=== PATIENT | male | born 1985 | race Caucasian/White ===

== ENCOUNTER 2018-04-23 11:15 | Outpatient (RCR) | payer MEDICARE, MEDICAID, SELFPAY ==
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
--- NOTE | 2018-04-16 16:27 | PT.OPPOC ---
Current Diagnoses Pain in right shoulder (04/15/18) Provider Visit Care Team Role Provider Type Rafael Villarreal MD Attending Provider Physician Family Provider Primary Care Provider Specialty: Internal Medicine Address: [address] [place] [address], [id number] Email: [email or web address] Plan Of Care PT-OP-T Assessment and Plan Start: 04/15/18 14:29 Freq: Status: Active Protocol: Document 04/15/18 13:00 AMB (Rec: 04/16/18 16:26 AMB [email or web address]) Physical Therapy Assessment Rehab Potential Rehabilitation Potential Good Evaluation Complexity Number of Personal Factors/Comorbidities 1-2 Number of Body Systems Impaired 4 or More Clinical Presentation at Evaluation Evolving Impairments Impairments Activity Tolerance Functional Activities Pain Posture ROM Strength Goals Three Impairment Activity tolerance Short Term Goal (STG) The patient will sleep on his right shoulder for 2 hours without waking due to pain. STG Duration 5 weeks Correction Goal (LTG) The patient will perform all upper body dressing without increasing his baseline pain. LTG Duration 10 weeks Two Impairment Strength Short Term Goal (STG) The patient will be independent with a ROM and strengthening HEP. STG Duration 5 weeks Truck Body Builder Goal (LTG) The patient will improve his strength so that he can lift a 10# bag of groceries from the floor to waist height without an increase in pain. One Impairment ROM Short Term Goal (STG) The patient will increase his pain free active ROM to flexion of 90 degrees. STG Duration 5 weeks Truck Body Builder Goal (LTG) The patient will increase his pain free active ROM to wash his hair with is right hand. LTG Duration 10 weeks Assessment Summary Assessment The patient presents with insidious onset posterior right shoulder pain. His pain is high so that it is difficult for him to move the arm, and therefore specific testing to rule in/out specific pathology was inconclusive (everything increased his pain). He will benefit from PT, but progression may be slow due to his fear of movement. Physical Therapy Plan Frequency and Duration Frequency of Treatment 2x/Week Duration of Treatment 10 weeks Plan of Care Start Date 04/15/18 Plan of Care End Date 06/24/18 Therapeutic Interventions Therapeutic Interventions Home Exercise Program Manual Therapy Neuromuscular Re-education Self-Care/Home Management Soft Tissue Mobilization Taping Therapeutic Activities Therapeutic Exercises Modalities Cold Pack/Ice Massage Electric Stimulation Hot Packs Next Visit Focus/Plan Next Note Type Treatment Note Next Visit Plan Begin with nani DIOP Plan of Care Dates Plan of Care Start Date 04/15/18 Plan of Care End Date 06/24/18 Please Sign and Return: I have reviewed this Plan of Care and certify that the skilled therapy services above are required to meet the patient?s needs. Physician Signature Date Printed Name and Credentials Clinical Instructor Signature Printed Name and Credentials
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
== END 2018-07-23 10:41 ==
LOC: PHYS 11:15
PROVIDERS: Family Provider Internal Medicine; PCP Internal Medicine; Visit Provider Internal Medicine
DX: M25.511 Pain in right shoulder (principal)
CPT/HCPCS: 97010; 97110; 97140; 97162

== ENCOUNTER 2018-07-15 12:02 | Emergency (ER) | payer MEDICARE, MEDICAID, SELFPAY ==
[2018-07-15 12:09] VITALS: BP 115/68; PULSE 74; RESP 18; TEMP 36.1; O2SAT 100
--- NOTE | 2018-07-15 13:32 | DI.RAD.S_ITS ---
PROCEDURE: XR CHEST 2V INDICATIONS: productive cough, fever TECHNIQUE: 2 views of the chest were acquired. COMPARISON: [facility], , CHEST 1 VIEW, 09/30/2016, 2:10. FINDINGS: Surgical changes and devices: None. Lungs and pleura: Increased density at the right lung base is identified, which may be slightly more prominent on the current study. No lobar consolidation, effusion, or pneumothorax is evident. Mild pulmonary hyperexpansion of the lungs is present versus pectus excavatum. Mediastinum: Mediastinal contours are normal. Heart size is normal. Bones and chest wall: No suspicious bony abnormalities. Soft tissues appear unremarkable. IMPRESSION: Increased density within the right infrahilar region may be exaggerated by pectus excavatum. Subtle pneumonia cannot be completely excluded. Please correlate clinically. Dictated by: Harman Hull M.D. on 07/15/2018 at 13:07 Approved by: Harman Hull M.D. on 07/15/2018 at 13:08
--- NOTE | 2018-07-15 14:03 | ED_ITS ---
HPI - URI/Sore Throat <ANDRZEJ Alfred - Last Filed: 07/15/18 15:08> General Chief Complaint: Upper Respiratory Symptoms Stated Complaint: Posibility of Pneumonia Time Seen by Provider: 07/15/18 13:28 Source: patient Mode of arrival: ambulatory Limitations: no limitations History of Present Illness HPI Narrative: Patient presents with chief complaint of productive cough for the past week and half. He states his cough is worsening. He complains of low- grade subjective fevers, chills. He denies any vomiting or diarrhea. He is concerned he has pneumonia, as he states he has pneumonia easily. 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 He states that he will possibly also get an AICD at this point time. He states that his lungs hurt to breathe. He did have any chest pain. He has taken Tylenol to feel better. Patient presents stating that he is having lung pain and denies any need for lab work, EKG. He states he would just like an x- ray done. Related Data Home Medications Medication Instructions Recorded Confirmed divalproex 500 mg tablet,delayed 1,000 mg PO BID 06/22/18 06/22/18 release Previous Rx's Medication Instructions Recorded prednisone 20 mg tablet See Label Instructions PO .COMPLEX 04/27/18 #8 tab albuterol sulfate 2 puff INHALATION Q4-6H PRN #18 07/15/18 gram azithromycin See Label Instructions .ROUTE 07/15/18 .COMPLEX #6 tab Allergies Allergy/AdvReac Type Severity Reaction Status Date / Time amoxicillin [AMOXICILLIN] Allergy Mild hives Verified 06/22/18 11:34 venom-honey bee Allergy Unknown Verified 06/22/18 11:34 [BEE VENOM (HONEY BEE)] fluoxetine [FLUOXETINE] AdvReac Severe homicidal Verified 06/22/18 11:34 venlafaxine [VENLAFAXINE] AdvReac Severe vomiting Verified 06/22/18 11:34 Review of Systems <ANDRZEJ Alfred - Last Filed: 07/15/18 15:08> Review of Systems GENERAL: See HPI HEENT: Denies sinus pain, ear pain, sore throat, difficulty swallowing, dizziness. RESPIRATORY: HPI CARDIOVASCULAR: Denies chest pain, palpitations, orthopnea, edema, GASTROINTESTINAL: Denies nausea, vomiting, abdominal pain, diarrhea, constipation, melena. : Denies dysuria, frequency, incontinence, hematuria, urinary retention. MUSCULOSKELETAL: denies weakness, joint pain, or bony pain SKIN: Denies rash, skin lesions, or other NEUROLOGIC: Denies weakness, headache, numbness, change in speech, confusion, seizures, incoordination. PSYCHIATRIC: No concerning psychosocial issues. 12 point review of systems is negative except for those stated above Exam <ALEXANDRIA Alfred-BC - Last Filed: 07/15/18 15:08> Narrative Exam Narrative: GENERAL: Since patient in no acute distress HEAD: Atraumatic. Normocephalic. No temporal or scalp tenderness. EYES: Pupils equal round and reactive. Extraocular motions intact. No scleral icterus. No injection or drainage. ENT: Nose without bleeding, purulent drainage or septal hematoma. Throat without erythema, tonsillar hypertrophy or exudate. Uvula midline. Airway patent. NECK: Trachea midline. No JVD or lymphadenopathy. Supple, nontender, no meningeal signs. CARDIOVASCULAR: Regular rate and rhythm without murmurs, gallops, or rubs. RESPIRATORY: Clear to auscultation. Breath sounds equal bilaterally. No wheezes , rales, or rhonchi. No increased respiratory effort. No retractions. No accessory muscle use. No cough on exam. GASTROINTESTINAL: Abdomen soft, non-tender, nondistended. No hepato-splenomegaly , or palpable masses. No guarding. EXTREMITIES: No clubbing, cyanosis, or edema. No joint tenderness, effusion, or edema noted. BACK: Nontender without deformity or crepitance. No flank tenderness. NEURO: AOx3. SKIN: No rash or erythema. Initial Vital Signs Initial Vital Signs: Vital Signs Temperature 97.0 F L 07/15/18 12:09 Pulse Rate 74 07/15/18 12:09 Respiratory Rate 18 07/15/18 12:09 Blood Pressure 115/68 07/15/18 12:09 Pulse Oximetry 100 07/15/18 12:09 <Luis Eduardo Hooker DO - Last Filed: 07/15/18 21:01> Initial Vital Signs Initial Vital Signs: Vital Signs Temperature 97.0 F L 10/04/18 12:09 Pulse Rate 74 07/15/18 12:09 Respiratory Rate 18 07/15/18 12:09 Blood Pressure 115/68 07/15/18 12:09 Pulse Oximetry 100 07/15/18 12:09 Course <ANDRZEJ Alfred - Last Filed: 07/15/18 15:08> Orders Ordered: ED Orders 07/15/18 13:32 XR chest 2V Stat Vital Signs - 8 hr 07/15/18 14:55 Pulse Rate 76 Respiratory Rate 18 Blood Pressure 121/63 Pulse Oximetry 100 <Luis Eduardo Hooker DO - Last Filed: 07/15/18 21:01> Orders Ordered: ED Orders 07/15/18 13:32 XR chest 2V Stat Vital Signs - 8 hr 07/15/18 14:55 Pulse Rate 76 Respiratory Rate 18 Blood Pressure 121/63 Pulse Oximetry 100 MDM - URI/Sore Throat <ANDRZEJ Alfred - Last Filed: 07/15/18 15:08> Differential Diagnosis Differential diagnosis: Likely upper respiratory infection, viral infection, bronchitis and influenza Imaging Data Chest x-ray: Radiologist's impression: [address] [address] XRay Report Signed Patient: Roque Dasilva EMR#: [id number] : 1985Acct:[id number] Age/Sex: 32 / MDate of Service: 07/15/18 Loc: ED Accession Number: [id number] Procedure: XR chest 2V Ordering Provider: Mireya Goodwin PROCEDURE: XR CHEST 2V INDICATIONS: productive cough, fever TECHNIQUE: 2 views of the chest were acquired. COMPARISON: Located [facility], , CHEST 1 VIEW, 09/30/2016, 2:10. FINDINGS: Surgical changes and devices: None. Lungs and pleura: Increased density at the right lung base is identified, which may be slightly more prominent on the current study. No lobar consolidation, effusion , or pneumothorax is evident. Mild pulmonary hyperexpansion of the lungs is present versus pectus excavatum. Mediastinum: Mediastinal contours are normal. Heart size is normal. Bones and chest wall: No suspicious bony abnormalities. Soft tissues appear unremarkable. IMPRESSION: Increased density within the right infrahilar region may be exaggerated by pectus excavatum. Subtle pneumonia cannot be completely excluded. Please correlate clinically. Dictated by: Harman Hull M.D. on 07/15/2018 at 13:07 Approved by: Harman Hull M.D. on 07/15/2018 at 13:08 [facility] Narrative Medical decision making narrative: Patient presents with chief complaint of possible pneumonia. He has been having a productive cough and fevers. 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 X-ray illustrated increased density within the right infrahilar region. Given his fever, productive cough, duration of illness combined with the x-ray results, I will treat him with azithromycin. He states his has worked well for him in the past. He states he has used an inhaler in the past and would like 1 at this time for wheezing if he needs it. I am okay with this. Patient already has follow-up scheduled for tomorrow with primary care. I encouraged him to keep his follow-up and come back to the emergency department if needed. He had no questions upon discharge. Discharge Plan Departure Patient Disposition: Home Clinical Impression: Pneumonia Discharge Date/Time: 07/15/18 14:55 Interventions: ED Discharge Assessment Last Done: 07/15/18 14:55 Instructions: DI for Pneumonia -- Adult Activity Restrictions/Additional Instructions: Please follow-up with primary care as discussed. Your starting on antibiotics and I gave you a prescription for an albuterol inhaler to use if you need it. Please monitor for worsening of symptoms, fever, shortness of breath. Come back to the emergency department if needed. Prescriptions: New albuterol sulfate 90 mcg/actuation HFA aerosol inhaler 2 puff INHALATION Q4-6H PRN (Reason: shortness of breath or wheezing) Qty: 18 RF: 0 azithromycin 250 mg tablet See Label Instructions .ROUTE .COMPLEX Qty: 6 RF: 0 No Action prednisone 20 mg tablet See Label Instructions PO .COMPLEX Qty: 8 RF: 0 divalproex [Depakote] 500 mg tablet,delayed release (DR/EC) 1,000 mg PO BID RF: 0 Referrals: Rafael Villarreal MD [Primary Care Provider] - <Luis Eduardo Hooker DO - Last Filed: 07/15/18 21:01> Cosign ED Attending Cosignature Attestation: I was immediately available in the department for consultation. Documentation has been reviewed. I agree with assessment and plan.
[2018-07-15 14:55] VITALS: BP 121/63; PULSE 76; RESP 18; O2SAT 100
== END 2018-07-15 14:55 | disposition home or self-care (01) ==
PROVIDERS: Emergency Provider Nurse Practitioner Family; Family Provider Internal Medicine; PCP Internal Medicine
DX: J18.9 Pneumonia, unspecified organism (principal)
CPT/HCPCS: 71046; 99282; 99283

== ENCOUNTER 2019-04-09 20:36 | Emergency (ER) | payer MEDICARE, MEDICAID, SELFPAY ==
[2019-04-09 20:37] VITALS: BP 133/80; PULSE 96; RESP 20; TEMP 37; O2SAT 100; BMI 18.4
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
[2019-04-09] MEDS: IBUPROFEN 400 MG TABLET 800 MG PO (21:09)
--- NOTE | 2019-04-09 21:23 | PC.NURSE ---
No open skin noted on L FA. Pt reports pain in L FA and down to thumb area with movements and touch
== END 2019-04-09 21:15 | disposition home or self-care (01) ==
PROVIDERS: Emergency Provider Emergency Medicine; PCP Internal Medicine
DX: S50.12XA Contusion of left forearm, initial encounter (principal); W50.3XXA Accidental bite by another person, initial encounter
CPT/HCPCS: 29125; 99282

== ENCOUNTER → 2019-11-18 15:54 | Outpatient (CLI) | payer MEDICARE, MEDICAID, SELFPAY ==
[2019-11-18 18:25] LABS: Alanine Aminotransferase 16 IU/L (<50); Albumin 4.4 g/dL (3.5-5.0); Albumin Globulin Ratio 1.5 (1.0-2.8); Alkaline Phosphatase 55 U/L (38-126); Aspartate Aminotransferase 24 IU/L (17-59); Bilirubin Total 0.4 mg/dL (0.2-1.3); Bilirubin Unconjugated 0.4 mg/dL (0.0-1.1); Globulin 2.9 g/dL (1.7-4.1); HEMOLYSIS < 15 (0-50); Total Protein 7.3 g/dL (6.3-8.2)
[2019-11-18 20:57] LABS: Hep C Virus Ab w/Reflex Quant NEGATIVE s/c (NEGATIVE)
== END ==
PROVIDERS: PCP Internal Medicine; Referring Provider Internal Medicine; Visit Provider Internal Medicine
DX: K75.9 Inflammatory liver disease, unspecified (principal)
CPT/HCPCS: 36415; 80076; 86803

== ENCOUNTER → 2020-05-30 08:54 | Outpatient (CLI) | payer MEDICARE, MEDICAID, SELFPAY ==
[2020-06-01 09:08] LABS: COVID19 Sendout Not Detected (Not Detected)
== END ==
PROVIDERS: PCP Internal Medicine; Visit Provider Physician Assistant
DX: Z11.59 Encounter for screening for other viral diseases (principal)
CPT/HCPCS: 87635

== ENCOUNTER 2021-03-08 03:24 | Emergency (ER) | payer MEDICARE, MEDICAID, SELFPAY ==
[2021-03-08] VITALS (26 sets, daily range): BP systolic 100–125; BP diastolic 57–82; PULSE 67–104; RESP 11–25; TEMP 36.6; O2SAT 96–100; BMI 19.2
--- NOTE | 2021-03-08 03:28 | ED.OVERDOSE ---
HPI - Overdose <Luis Eduardo Hooker DO - Last Filed: 03/09/21 18:31> General Chief Complaint: Toxicology Problem Stated Complaint: Overdose Time Seen by Provider: 03/08/21 03:25 Source: patient and police Mode of arrival: Ambulatory Limitations: no limitations History of Present Illness HPI Narrative: 35-year-old male smoker with history of intermittent explosive disorder, anxiety, substance abuse, bipolar presents with police in the chief complaint of suicidal ideation and attempt just prior to arrival. His significant other apparently just left him and he felt overwhelmingly depressed and suicidal and in an effort to take his own life he consumed upwards of 40 hydroxyzine 25 mg tablets that had been prescribed 2013. He did this all at once and just 30 minutes prior to his arrival. He denies much in the way of other symptoms. He is not dizzy, weak or lightheaded. He denies any nausea or vomiting. He denies any chest pain or shortness of breath. He denies any other substances. Patient was escorted by [facility], but walked himself here and is voluntary. MD complaint: intentional overdose Onset (ago): minute(s) Timing confirmed by: family member Intent: suicide attempt Context: Intentional Overdose: relationship problems Associated symptoms: depression Treatments Prior to Arrival: none Related Data Previous Rx's Medication Instructions Recorded divalproex 500 mg tablet,delayed 500 mg PO BID #60 tab 03/01/19 release olanzapine 2.5 mg tablet 2.5 mg PO BEDTIME #30 tab 08/23/20 Allergies Allergy/AdvReac Type Severity Reaction Status Date / Time amoxicillin [AMOXICILLIN] Allergy Mild hives Verified 08/23/20 10:47 venom-honey bee Allergy Unknown Verified 08/23/20 10:47 [BEE VENOM (HONEY BEE)] fluoxetine [FLUOXETINE] AdvReac Severe homicidal Verified 08/23/20 10:47 venlafaxine [VENLAFAXINE] AdvReac Severe vomiting Verified 08/23/20 10:47 Review of Systems <Luis Eduardo Hooker DO - Last Filed: 03/09/21 18:31> Constitutional Constitutional: Denies chills, Denies fatigue, Denies fever(s), Denies frequent falls, Denies lethargy and Denies weakness Eyes Eyes: Denies change in vision, Denies eye discharge, Denies irritation and Denies loss of vision ENT Ears, Nose, Mouth, and Throat: Denies change in voice, Denies dizziness, Denies neck pain, Denies sore throat and Denies throat swelling Cardiovascular Cardiovascular: Denies chest pain, Denies irregular heart rhythm, Denies lightheadedness, Denies palpitations, Denies dyspnea, Denies dyspnea on exertion and Denies orthopnea Respiratory Respiratory: Denies cough, Denies dyspnea, Denies dyspnea on exertion and Denies wheezing Gastrointestinal Gastrointestinal: Denies abdominal pain, Denies change in bowel habits, Denies diarrhea, Denies nausea and Denies vomiting Musculoskeletal Musculoskeletal: Denies neck pain and Denies numbness Integumentary/Breasts Skin/Breast: Denies pruritus, Denies erythema, Denies rash and Denies wounds Neurologic Neurologic: Denies behavioral changes, Denies confusion, Denies dizziness, Denies frequent falls, Denies loss of vision, Denies numbness and Denies weakness Psychiatric Psychiatric: Denies anxiety, Denies behavioral changes, Denies confusion, Reports depression, Denies homicidal ideation and Reports suicidal ideation Endocrine Endocrine: Denies fatigue, Denies flushing and Denies palpitations Hematologic/Lymphatic Hematologic/Lymphatic: Denies easy bruising Allergic/Immunologic Allergic/Immunologic: Denies urticaria, Denies throat swelling and Denies wheezing Patient History <Luis Eduardo Hooker DO - Last Filed: 03/09/21 18:31> Medical History (Updated 03/08/21 @ 13:32 by Mireya Kimble DO) Anger reaction (03/01/15) Anxiety Bipolar I disorder (03/01/15) Cardiac arrhythmia Hemorrhoids History of substance abuse Intermittent explosive disorder PTSD (post-traumatic stress disorder) Supraventricular tachycardia (06/26/14) Entrw-Qclpregde-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 Well-nourished, well-developed patient, in mild distress. Tearful, visibly upset HEAD: Atraumatic. Normocephalic. EYES: Pupils equal round and reactive. Extraocular motions intact. No scleral icterus. No injection or drainage. ENT: Nose without bleeding, purulent drainage. Throat without erythema, tonsillar hypertrophy or exudate. Airway patent. NECK: Trachea midline. Non tender CARDIOVASCULAR: Regular rate and rhythm without murmurs, gallops, or rubs. RESPIRATORY: Clear to auscultation. Breath sounds equal bilaterally. No wheezes, rales, or rhonchi. GASTROINTESTINAL: Abdomen soft, non-tender, nondistended. EXTREMITIES: No edema or joint tenderness. BACK: Nontender without deformity or crepitance. No flank tenderness. NEURO: AOx3. SKIN: No rash or erythema of visible areas Initial Vital Signs Initial Vital Signs: Vital Signs Pulse Rate 104 H 03/08/21 03:27 Respiratory Rate 16 03/08/21 03:27 Pulse Oximetry 100 03/08/21 03:27 <Mireya Kimble DO - Last Filed: 03/08/21 18:46> Initial Vital Signs Initial Vital Signs: Vital Signs Pulse Rate 104 H 03/08/21 03:27 Respiratory Rate 16 03/08/21 03:27 Pulse Oximetry 100 03/08/21 03:27 Course <Luis Eduardo Hooker DO - Last Filed: 03/09/21 18:31> Course Course Narrative: Call to poison Control early on in the visit, very unlikely to experience any significant toxicity given this dosage. Recommend labs per the usual, EKG. Benzodiazepines for any significant symptoms, recommend monitoring for 6 hours prior to medical clearance for social Work evaluation Orders Ordered: Discontinued Medications Charcoal (Activated Charcoal 50 Gm/240 Ml) 50 gm PO NOW ONE Stop: 03/08/21 03:26 Last Admin: 03/08/21 03:53 Dose: 50 gm Documented by: CLAUDIA Sodium Chloride (Normal Saline 0.9%) 1,000 mls @ 150 mls/hr IV CONT GREGORIO Last Infusion: 03/08/21 11:51 Dose: 0 mls/hr Documented by: Admin: 03/08/21 03:53 Dose: 150 mls/hr Documented by: CLAUDIA Vital Signs Vital signs: Vital Signs - 8 hr 03/08/21 11:00 03/08/21 11:30 03/08/21 12:00 Pulse Rate 73 73 70 Respiratory Rate 12 14 13 Blood Pressure 114/66 101/64 110/66 Pulse Oximetry 98 98 98 03/08/21 12:30 03/08/21 13:00 03/08/21 13:30 Pulse Rate 74 85 85 Respiratory Rate 15 21 24 Blood Pressure 110/75 121/82 112/70 Pulse Oximetry 98 99 99 03/08/21 13:48 Pulse Rate 85 Respiratory Rate 18 Blood Pressure 112/70 Pulse Oximetry 98 <Mireya Kimble, DO - Last Filed: 03/08/21 18:46> Orders Ordered: Discontinued Medications Charcoal (Activated Charcoal 50 Gm/240 Ml) 50 gm PO NOW ONE Stop: 03/08/21 03:26 Last Admin: 03/08/21 03:53 Dose: 50 gm Documented by: CLAUDIA Sodium Chloride (Normal Saline 0.9%) 1,000 mls @ 150 mls/hr IV CONT GREGORIO Last Infusion: 03/08/21 11:51 Dose: 0 mls/hr Documented by: Admin: 03/08/21 03:53 Dose: 150 mls/hr Documented by: CLAUDIA Reevaluation(s) Reevaluation #1: Patient signed out to myself. At this time patient is medically cleared as he has been asymptomatic after 6 hours of observation as per poison Control recommendations. Patient's labs show mild leukocytosis, slightly elevated BUN, salicylates, Tylenol and U tox are negative. REMARKETING REP was in the department and evaluated the patient. Patient came with [facility] for intentional ingestion overnight. Time: 09:02 Reevaluation #2: Patient has seen social psychologist. They did look for voluntary beds but none are available currently. Patient does feel safe to return home. He is agreeable to follow-up with outpatient. Plan for crisis line contact today at 4:00 p.m.. Patient sees Hilario Gallardo and plan to set him up an appointment which social Work will arrange and if patient has been discharged prior to the time and date she will contact him with that information. Patient contracts for safety with myself. His family is coming to pick him up and patient has been medically cleared here in the department. Time: 13:35 Vital Signs Vital signs: Vital Signs - 8 hr 03/08/21 11:00 03/08/21 11:30 03/08/21 12:00 Pulse Rate 73 73 70 Respiratory Rate 12 14 13 Blood Pressure 114/66 101/64 110/66 Pulse Oximetry 98 98 98 03/08/21 12:30 03/08/21 13:00 03/08/21 13:30 Pulse Rate 74 85 85 Respiratory Rate 15 21 24 Blood Pressure 110/75 121/82 112/70 Pulse Oximetry 98 99 99 03/08/21 13:48 Pulse Rate 85 Respiratory Rate 18 Blood Pressure 112/70 Pulse Oximetry 98 MDM - Overdose <Luis Eduardo Hooker, - Last Filed: 03/09/21 18:31> Lab Data Result diagrams: 03/08/21 03:45 03/08/21 03:45 Labs: Lab Results 03/08/21 03/08/21 03/08/21 Range/Units 03:45 03:45 03:45 WBC 11.4 H (4.5-11.0) X10^3/uL RBC 4.85 (4.5-5.9) X10^6/uL Hgb 14.8 (13.5-17.5) g/dL Hct 43.7 (41-53) % MCV 90.2 (80-100) fL MCH 30.5 (26-34) PG MCHC 33.8 (30-36) % RDW 12.8 (11.6-14.8) % Plt Count 268 (150-400) X10^3/uL Neut % (Auto) 62.4 (50-75) % Lymph % (Auto) 23.8 L (25-40) % [place] % (Auto) 8.8 (3-14) % Eos % (Auto) 4.1 H (2-4) % Baso % (Auto) 0.9 (0-2) % Neut # (Auto) 7100 H (5431-9456) /uL Lymph # (Auto) 2700 (6625-8785) /uL [place] # (Auto) 1000 H (0-900) /uL Eos # (Auto) 500 H (0-450) /uL Baso # (Auto) 100 (0-100) /uL Sodium 138 (137-145) mmol/L Potassium 4.0 (3.4-5.1) mmol/L Chloride 107 (98-107) mmol/L Carbon Dioxide 21 L (22-32) mmol/L BUN 18 (9-20) mg/dL Creatinine 0.89 (0.66-1.25) mg/dL Estimated GFR > 60.0 (>60) mL/min BUN/Creatinine Ratio 20.2 (6-22) Glucose 102 H (70-100) mg/dL Lactate 1.1 (0.7-2.1) mmol/L Calcium 9.3 (8.4-10.2) mg/dL Total Bilirubin 0.2 (0.2-1.3) mg/dL Conjugated Bilirubin 0.0 (0.0-0.3) md/dL Unconjugated Bilirubin 0.1 (0.0-1.1) mg/dL AST 23 (17-59) IU/L ALT 13 (<50) IU/L Alkaline Phosphatase 64 (38-126) U/L Total Protein 7.0 (6.3-8.2) g/dL Albumin 4.3 (3.5-5.0) g/dL Globulin 2.7 (1.7-4.1) g/dL Albumin/Globulin Ratio 1.6 (1.0-2.8) Salicylates < 1.0 (<20) mg/dL U Opiates 300ng/mL cut (Negative) Ur Oxycodone Screen (Negative) Urine Methadone Screen (Negative) Acetaminophen < 10 L (10-30) ug/mL Ur Barbiturates Screen (Negative) U Tricyclic Antidepress (Negative) Ur Phencyclidine Scrn (Negative) Ur Amphetamines Screen (Negative) U Methamphetamines Scrn (Negative) Ur MDMA Scrn (Ecstasy) (Negative) U Benzodiazepines Scrn (Negative) Urine Cocaine Screen (Negative) U Marijuana (THC) Screen (Negative) Ethyl Alcohol < 10 ( - 10) mg/dL SARS-CoV-2 (PCR) (Negative) 03/08/21 03/08/21 Range/Units 06:35 09:08 WBC (4.5-11.0) X10^3/uL RBC (4.5-5.9) X10^6/uL Hgb (13.5-17.5) g/dL Hct (41-53) % MCV (80-100) fL MCH (26-34) PG MCHC (30-36) % RDW (11.6-14.8) % Plt Count (150-400) X10^3/uL Neut % (Auto) (50-75) % Lymph % (Auto) (25-40) % [place] % (Auto) (3-14) % Eos % (Auto) (2-4) % Baso % (Auto) (0-2) % Neut # (Auto) (4765-5291) /uL Lymph # (Auto) (8905-3105) /uL [place] # (Auto) (0-900) /uL Eos # (Auto) (0-450) /uL Baso # (Auto) (0-100) /uL Sodium (137-145) mmol/L Potassium (3.4-5.1) mmol/L Chloride (98-107) mmol/L Carbon Dioxide (22-32) mmol/L BUN (9-20) mg/dL Creatinine (0.66-1.25) mg/dL Estimated GFR (>60) mL/min BUN/Creatinine Ratio (6-22) Glucose (70-100) mg/dL Lactate (0.7-2.1) mmol/L Calcium (8.4-10.2) mg/dL Total Bilirubin (0.2-1.3) mg/dL Conjugated Bilirubin (0.0-0.3) md/dL Unconjugated Bilirubin (0.0-1.1) mg/dL AST (17-59) IU/L ALT (<50) IU/L Alkaline Phosphatase (38-126) U/L Total Protein (6.3-8.2) g/dL Albumin (3.5-5.0) g/dL Globulin (1.7-4.1) g/dL Albumin/Globulin Ratio (1.0-2.8) Salicylates (<20) mg/dL U Opiates 300ng/mL cut Negative (Negative) Ur Oxycodone Screen Negative (Negative) Urine Methadone Screen Negative (Negative) Acetaminophen (10-30) ug/mL Ur Barbiturates Screen Negative (Negative) U Tricyclic Antidepress Negative (Negative) Ur Phencyclidine Scrn Negative (Negative) Ur Amphetamines Screen Negative (Negative) U Methamphetamines Scrn Negative (Negative) Ur MDMA Scrn (Ecstasy) Negative (Negative) U Benzodiazepines Scrn Negative (Negative) Urine Cocaine Screen Negative (Negative) U Marijuana (THC) Screen Negative (Negative) Ethyl Alcohol ( - 10) mg/dL SARS-CoV-2 (PCR) Negative (Negative) <Mireya Kimble, DO - Last Filed: 03/08/21 18:46> Lab Data Attestation: I reviewed the patient's lab results. Labs: Lab Results 03/08/21 03/08/21 03/08/21 Range/Units 03:45 03:45 03:45 WBC 11.4 H (4.5-11.0) X10^3/uL RBC 4.85 (4.5-5.9) X10^6/uL Hgb 14.8 (13.5-17.5) g/dL Hct 43.7 (41-53) % MCV 90.2 (80-100) fL MCH 30.5 (26-34) PG MCHC 33.8 (30-36) % RDW 12.8 (11.6-14.8) % Plt Count 268 (150-400) X10^3/uL Neut % (Auto) 62.4 (50-75) % Lymph % (Auto) 23.8 L (25-40) % [place] % (Auto) 8.8 (3-14) % Eos % (Auto) 4.1 H (2-4) % Baso % (Auto) 0.9 (0-2) % Neut # (Auto) 7100 H (7322-1974) /uL Lymph # (Auto) 2700 (2249-5881) /uL [place] # (Auto) 1000 H (0-900) /uL Eos # (Auto) 500 H (0-450) /uL Baso # (Auto) 100 (0-100) /uL Sodium 138 (137-145) mmol/L Potassium 4.0 (3.4-5.1) mmol/L Chloride 107 (98-107) mmol/L Carbon Dioxide 21 L (22-32) mmol/L BUN 18 (9-20) mg/dL Creatinine 0.89 (0.66-1.25) mg/dL Estimated GFR > 60.0 (>60) mL/min BUN/Creatinine Ratio 20.2 (6-22) Glucose 102 H (70-100) mg/dL Lactate 1.1 (0.7-2.1) mmol/L Calcium 9.3 (8.4-10.2) mg/dL Total Bilirubin 0.2 (0.2-1.3) mg/dL Conjugated Bilirubin 0.0 (0.0-0.3) md/dL Unconjugated Bilirubin 0.1 (0.0-1.1) mg/dL AST 23 (17-59) IU/L ALT 13 (<50) IU/L Alkaline Phosphatase 64 (38-126) U/L Total Protein 7.0 (6.3-8.2) g/dL Albumin 4.3 (3.5-5.0) g/dL Globulin 2.7 (1.7-4.1) g/dL Albumin/Globulin Ratio 1.6 (1.0-2.8) Salicylates < 1.0 (<20) mg/dL U Opiates 300ng/mL cut (Negative) Ur Oxycodone Screen (Negative) Urine Methadone Screen (Negative) Acetaminophen < 10 L (10-30) ug/mL Ur Barbiturates Screen (Negative) U Tricyclic Antidepress (Negative) Ur Phencyclidine Scrn (Negative) Ur Amphetamines Screen (Negative) U Methamphetamines Scrn (Negative) Ur MDMA Scrn (Ecstasy) (Negative) U Benzodiazepines Scrn (Negative) Urine Cocaine Screen (Negative) U Marijuana (THC) Screen (Negative) Ethyl Alcohol < 10 ( - 10) mg/dL SARS-CoV-2 (PCR) (Negative) 03/08/21 03/08/21 Range/Units 06:35 09:08 WBC (4.5-11.0) X10^3/uL RBC (4.5-5.9) X10^6/uL Hgb (13.5-17.5) g/dL Hct (41-53) % MCV (80-100) fL MCH (26-34) PG MCHC (30-36) % RDW (11.6-14.8) % Plt Count (150-400) X10^3/uL Neut % (Auto) (50-75) % Lymph % (Auto) (25-40) % [place] % (Auto) (3-14) % Eos % (Auto) (2-4) % Baso % (Auto) (0-2) % Neut # (Auto) (7316-6130) /uL Lymph # (Auto) (8148-7679) /uL [place] # (Auto) (0-900) /uL Eos # (Auto) (0-450) /uL Baso # (Auto) (0-100) /uL Sodium (137-145) mmol/L Potassium (3.4-5.1) mmol/L Chloride (98-107) mmol/L Carbon Dioxide (22-32) mmol/L BUN (9-20) mg/dL Creatinine (0.66-1.25) mg/dL Estimated GFR (>60) mL/min BUN/Creatinine Ratio (6-22) Glucose (70-100) mg/dL Lactate (0.7-2.1) mmol/L Calcium (8.4-10.2) mg/dL Total Bilirubin (0.2-1.3) mg/dL Conjugated Bilirubin (0.0-0.3) md/dL Unconjugated Bilirubin (0.0-1.1) mg/dL AST (17-59) IU/L ALT (<50) IU/L Alkaline Phosphatase (38-126) U/L Total Protein (6.3-8.2) g/dL Albumin (3.5-5.0) g/dL Globulin (1.7-4.1) g/dL Albumin/Globulin Ratio (1.0-2.8) Salicylates (<20) mg/dL U Opiates 300ng/mL cut Negative (Negative) Ur Oxycodone Screen Negative (Negative) Urine Methadone Screen Negative (Negative) Acetaminophen (10-30) ug/mL Ur Barbiturates Screen Negative (Negative) U Tricyclic Antidepress Negative (Negative) Ur Phencyclidine Scrn Negative (Negative) Ur Amphetamines Screen Negative (Negative) U Methamphetamines Scrn Negative (Negative) Ur MDMA Scrn (Ecstasy) Negative (Negative) U Benzodiazepines Scrn Negative (Negative) Urine Cocaine Screen Negative (Negative) U Marijuana (THC) Screen Negative (Negative) Ethyl Alcohol ( - 10) mg/dL SARS-CoV-2 (PCR) Negative (Negative) Discharge Plan Departure Patient Disposition: Home Clinical Impression: Overdose Qualifiers: Encounter type: initial encounter Injury intent: intentional self-harm Qualified Code(s): T50.902A - Poisoning by unspecified drugs, medicaments and biological substances, intentional self-harm, initial encounter Instructions: DI for Suicidal Ideation-Adult, DI for Drug Overdose in Adults Activity Restrictions/Additional Instructions: Follow up with Michelle Gorman in the next week as discussed. Our social psychologist is setting up an appointment for you. If this time has not been confirmed before you week she will contact you via cell phone to give you an exact time and date for your follow-up appointment. The crisis line is going to contact you at 4pm today to follow up. If you do not answer they will contact PD for a well check so please answer your phone or return there calls promptly. If you're feeling suicidal or having suicidal thoughts, contact the suicide hotline (this is also referral number for consultation, self referral for services to counseling and psychiatry) . . May return at any time for assistance, if you are having thoughts of harming or killing yourself at this time, harming or others, if her having any symptoms such as severe headaches, passing out, new chest pain or shortness of breath, sweating, persistent vomiting, diarrhea, new chest pain or shortness of breath or other new or concerning symptoms. Prescriptions: No Action olanzapine 2.5 mg tablet 2.5 mg PO BEDTIME Qty: 30 RF: 1 divalproex 500 mg tablet,delayed release (DR/EC) 500 mg PO BID Qty: 60 RF: 2 Referrals: Rafael Villarreal MD [Primary Care Provider] - Michelle Gorman ARNP [Advanced Registry Nurse] -
[2021-03-08] MEDS: SODIUM CHLORIDE 0.9% 1,000 ML 150 ML IV (03:53)
[2021-03-08] MEDS: ACTIVATED CHARCOAL 50 GM/240 ML PO (03:53)
[2021-03-08 03:55] LABS: Add Manual Diff / Slide Review NO; Basophils Absolute Auto 100 /uL (0-100); Basophils Percent Auto 0.9 % (0-2); Eosinophils Absolute Auto 500 /uL (0-450); Eosinophils Percent Auto 4.1 % (2-4); Hematocrit 43.7 % (41-53); Hemoglobin 14.8 g/dL (13.5-17.5); Lymphocytes Absolute Auto 2700 /uL (1100-4500); Lymphocytes Percent Auto 23.8 % (25-40); Mean Corpuscular HGB Conc 33.8 % (30-36); Mean Corpuscular Hemoglobin 30.5 PG (26-34); Mean Corpuscular Volume 90.2 fL (80-100); Monocytes Absolute Auto 1000 /uL (0-900); Monocytes Percent Auto 8.8 % (3-14); Neutrophils Absolute Auto 7100 /uL (1500-7000); Neutrophils Percent Auto 62.4 % (50-75); Platelet Count 268 X10^3/uL (150-400); Red Blood Cell Count 4.85 X10^6/uL (4.5-5.9); Red Cell Distribution Width 12.8 % (11.6-14.8); White Blood Cell Count 11.4 X10^3/uL (4.5-11.0)
[2021-03-08 04:04] LABS: Acetaminophen < 10 ug/mL (10-30); Alanine Aminotransferase 13 IU/L (<50); Albumin 4.3 g/dL (3.5-5.0); Albumin Globulin Ratio 1.6 (1.0-2.8); Alkaline Phosphatase 64 U/L (38-126); Aspartate Aminotransferase 23 IU/L (17-59); BUN Creatinine Ratio 20.2 (6-22); Bilirubin Total 0.2 mg/dL (0.2-1.3); Bilirubin Unconjugated 0.1 mg/dL (0.0-1.1); Blood Urea Nitrogen 18 mg/dL (9-20); Calcium 9.3 mg/dL (8.4-10.2); Carbon Dioxide 21 mmol/L (22-32); Chloride 107 mmol/L (98-107); Estimated Glomerular Filt Rate > 60.0 mL/min (>60); Ethanol (ETOH) < 10 mg/dL; Globulin 2.7 g/dL (1.7-4.1); Glucose 102 mg/dL (70-100); HEMOLYSIS 20 (0-50); Lactate (Lactic Acid) 1.1 mmol/L (0.7-2.1); Salicylate < 1.0 mg/dL (<20); Sodium 138 mmol/L (137-145)
--- NOTE | 2021-03-08 05:11 | PC.NURSE ---
Pt. brought in by [facility]. Pt is cooperative with staff at this time.
--- NOTE | 2021-03-08 06:54 | PC.NURSE ---
Pt. provided urine sample.
[2021-03-08 07:07] LABS: UR Morphine/Opiate cutoff 300 Negative (Negative); Ur Creatinine Normal (Normal); Ur Specific Gravity Normal (Normal); Urine Amphetamines Negative (Negative); Urine Barbiturates Negative (Negative); Urine Benzodiazepines Negative (Negative); Urine Cocaine Negative (Negative); Urine MDMA Negative (Negative); Urine Methadone Negative (Negative); Urine Methamphetamines Negative (Negative); Urine Oxycodone Negative (Negative); Urine Phencyclidine Negative (Negative); Urine Tetrahydrocannabinol Negative (Negative); Urine Tricyclic Antidepressant Negative (Negative); Urine pH Normal (Normal)
--- NOTE | 2021-03-08 08:34 | PC.NURSE ---
Breakfast given to pt
--- NOTE | 2021-03-08 08:35 | PC.NURSE ---
Pt talking with QA ARCHITECT
--- NOTE | 2021-03-08 09:14 | CM.SWNOTE ---
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 PMH inclues intermittent explosive disorder, anxiety, substance abuse, bipolar disorder Precipitating Event(s) relationship problems, feeling useless, a failure, struggle w/MH at [employer], escalating thoughts and feelings of isolation, worhtlessness, and thoughts of suicide x2 weeks Patient Strengths Survivor of numerous traumas throughout life, resilient, father to 10 and 13 yo who he advocates strongly for, good support network, came in voluntarily for help. Current Behavioral Health Provider(s) Michelle Gallardo [facility] Include Facility, Provider, Ph. # Psych. Hx Mental Health and Chemical Anger reaction (03/01/15), Dependency Anxiety, Bipolar I disorder ( 03/01/15),History of substance abuse,Intermittent explosive disorder, PTSD (post-traumatic stress disorder) Family Hx of Behavioral Abuse Strong family h/o MH struggle Psychiatric Hospitalizations (date(s)/ Not assessed location) Psychosocial information & Support Patient currently lives w/two Systems sons and partner Kelsea Acevedo P# [phone]. Patient's spouse Karly is not currently living in the home. Patient is polyamorous and so states that he and his are both in a relationship with partner Kelsea School/Work Disabled and on disability benefits Presenting Problem N/A Legal Matters - Outstanding Issues None reported Orientation (Person/Place/Time) A+O Stated Mood tired, apathetic, just, done Affect (Congruent with Mood?) appropriate Thought Content - Specify/Describe Denies hallucinations Obsessions, Delusions, Hallucinations Thought Processes (Xnqsyke-Koykwvqq-Nnax logical, slowed Blfgghtt-Vgzvnorg-Rgrmqikqtm- Qwxqatuhhgjitl-Pseauvf-Uxsexxwzckvf- Thought Blocking) Speech (Tzllmd-Tgwv-Hjgueiu-Rapid-Soft- Normal Loud-Pressured) Motor (Lhgisl-Khnttkjkm-Pmqh-Other) Normal Insight (Pzkk-Itkq-Vitu/Limited) Fair, wants to go home Judgement (Gwlc-Cqkn-Hqhc/Limited) Poor Impulse Control (Adequate-Impaired) Impaired Memory (Wolioclmp-Vzukom-Thuzrn, Impaired Impaired-Intact) Concentration (Intact-Impaired) Impaired Attention (Intact-Impaired) Intact Behavior (Appropriate-Inappropriate) Appropriate Suicidal Ideation (Plan) Yes Homicidal Ideation (Plan) No Comment Firearms in the home locked up, I will give my the pena Intervention Discussed above assessment with patient who admitted he felt overwhelmed over the last two weeks w/constant thoughts of being a failure, feeling isolated, sleeping a few hours nightly, eating at least once a day if I can, feeling sad and not finding cici in any activities or moments in life. It is the professional oppinion of this OWNER MANAGER that patient would benefit from inpatient psychiatric care for crisis stabilization before returning home. Patient was hopeful to return home, however, he agrees he needs help and gives this OWNER MANAGER permission to research bed availability for inpatient psych treatment. RA Plan This OWNER MANAGER will attempt to secure an inpatient psychiatric bed on patient's behalf. Patient voluntary and, at this time, would not be considered a candidate to be detained against his will to psych treatment. MICHAEL Johnson
[2021-03-08 09:28] LABS: COVID19 -Nasal RAPID Negative (Negative)
--- NOTE | 2021-03-08 09:42 | PC.NURSE ---
pt resteing eyes closed,chest rise/fall
--- NOTE | 2021-03-08 10:48 | CM.DPNOTE ---
Faxed referral packet to [facility] [phone]. Received fax confirmation. Kelsey Peña CM Asst.
--- NOTE | 2021-03-08 11:05 | PC.NURSE ---
Pts chest rising/falling. no distres noted
--- NOTE | 2021-03-08 13:44 | PC.NURSE ---
End Pt 1:1 Pt discharged home
--- NOTE | 2021-03-08 15:57 | CM.SWNOTE ---
REFRIGERATING TECHNICIAN Note Patient w/no prior h/o inpatient psychiatric stay, requests to stay as close to [place] as possible. Attempted following inpatient facilities: [facility], [facility] in [facility] and [facility]. Unable to secure inpatient bed at these facilities. Updated patient w/above and he requested to go home. Patient is not a candidate for detainment and was agreeable to safety planning w/this REFRIGERATING TECHNICIAN, stated he felt safe at home and denied ongoing suicidality, this REFRIGERATING TECHNICIAN asked for assist from provider Michelle Gorman; Spoke w/Michelle Gorman who suggested patient would be safe to return home if there was an adult he felt he could trust who was stable enough to help patient through additional crisis ...if thoughts of suicide/panic were persistent. Michelle suggested that patient's household is often hectic and unstable, w/two children that are at risk and special needs and off/on drug/alcohol abuse from adults throughout the family Of note- Michelle did not have concern about the safety of minor children 10 yo and 13 yo, but stressed that patient does have multiple environmental stressors Reviewed Michelle's recommendations w/patient and we got [place] on speaker phone; had lengthy conversation about coping strategies for patient, holding patient accountable to communicate his struggles and asked that patient work on asking for help when overwhelmed and panicked. Kelsea asked that patient consider prescription medication for depression/anxiety, if suggested by his provider. Patient stated he would consider Kelsea explained all firearms were locked up and codes/keys would not be accessible to patient, prescription medications were in the kitchen but managed by Kelsea. Updated Dr Kimble and nursing team. Plan: Patient discharged home w/partner Kelsea, crisis line called and f/u call scheduled for 1600 per patient's permission/request. Appt scheduled for f/u w/[employer], provider Michelle Gorman for Thursday03.13.21 at 1000, this REFRIGERATING TECHNICIAN unable to update patient re: this appt before NH, [facility] team will place call to patient to confirm MICHAEL Johnson
== END 2021-03-08 13:52 | disposition home or self-care (01) ==
PROVIDERS: Emergency Medicine; Emergency Provider Emergency Medicine; PCP Internal Medicine
DX: T50.902A Poisoning by unspecified drugs, medicaments and biological substances, intentional self-harm, initial encounter (principal); Z20.822 Contact with and (suspected) exposure to COVID-19
CPT/HCPCS: 36415; 80053; 80076; 80305; 80320; 80329; 83605; 85025; 87635; 93005; 96360; 96361; 99285; C9803; G0480